=== PATIENT | male | born 1950 | race Hispanic/Latino ===

== ENCOUNTER 2020-04-20 15:54 | Emergency (ER) | payer MEDICAID, MEDICARE, OTHER ==
--- NOTE | 2020-04-20 16:27 | Emergency Department Report ---
ED Lower Extremity HPI - General Chief Complaint: Extremity Problem,Nontraumatic Stated Complaint: LEFT LEG PAIN Time Seen by Provider: 04/20/20 16:12 Source: RN notes reviewed Mode of arrival: Stretcher Limitations: No Limitations - History of Present Illness Initial Comments: This is a 69-year-old male nontoxic, well nourished in appearance, no acute signs of distress presents to the ED with c/o of left lower leg pain x several days. Patient denies any trauma or injuries. Patient stated that pain is located in his thigh area and radiating to lower leg. Patient denies any numbness, tingling, fever, chills, nausea, vomiting, chest pain, shortness of breath, headache, stiff neck. Denies any leg swelling. Patient denies any joint swelling or joint redness. Patient denies decreased range of motion. MD Complaint: other (left leg pain) -: days(s) Injury: Leg: Left Severity: mild Severity scale (0 -10): 8 Improves With: nothing Worsens With: nothing Associated Symptoms: ambulatory. denies: snap/pop sensation, swelling, numbness, tingling, unable to bear weight, able to partially bear weight - Related Data Previous Rx's Medication Instructions Recorded Last Taken Type Cyclobenzaprine [Flexeril] 10 mg PO QHS PRN #10 tablet 04/20/20 Unknown Rx Naproxen 500 mg PO Q12H PRN #20 tablet 04/20/20 Unknown Rx Nicotine [Habitrol] 21 mg TD DAILY #30 patch 04/20/20 Unknown Rx Allergies Allergy/AdvReac Type Severity Reaction Status Date / Time chlorpromazine Allergy Unknown Verified 04/20/20 16:21 diphenhydramine Allergy Unknown Verified 04/20/20 16:21 [From Benadryl] haloperidol [From Haldol] Allergy Unknown Verified 04/20/20 16:21 latex Allergy Unknown Verified 04/20/20 16:21 Penicillins Allergy Unknown Verified 04/20/20 16:21 thioridazine [From Mellaril] Allergy Unknown Verified 04/20/20 16:21 ED Review of Systems ROS: Stated complaint: LEFT LEG PAIN Other details as noted in HPI Constitutional: denies: chills, fever Eyes: denies: eye pain, eye discharge, vision change ENT: denies: ear pain, throat pain Respiratory: denies: cough, shortness of breath, wheezing Cardiovascular: denies: chest pain, palpitations Endocrine: no symptoms reported Gastrointestinal: denies: abdominal pain, nausea, diarrhea Genitourinary: denies: urgency, dysuria Musculoskeletal: denies: back pain, joint swelling, arthralgia Skin: denies: rash, lesions Neurological: denies: headache, weakness, paresthesias Psychiatric: denies: anxiety, depression Hematological/Lymphatic: denies: easy bleeding, easy bruising ED Past Medical Hx - Medications Home Medications: Home Medications Medication Instructions Recorded Confirmed Last Taken Type Cyclobenzaprine [Flexeril] 10 mg PO QHS PRN #10 tablet 04/20/20 Unknown Rx Naproxen 500 mg PO Q12H PRN #20 tablet 04/20/20 Unknown Rx Nicotine [Habitrol] 21 mg TD DAILY #30 patch 04/20/20 Unknown Rx ED Physical Exam - General Limitations: No Limitations General appearance: alert, in no apparent distress - Head Head exam: Present: atraumatic, normocephalic - Neck Neck exam: Present: normal inspection, full ROM. Absent: tenderness, meningismus, lymphadenopathy - Respiratory Respiratory exam: Present: normal lung sounds bilaterally. Absent: respiratory distress, wheezes, rales, rhonchi, stridor, chest wall tenderness, accessory muscle use, decreased breath sounds, prolonged expiratory - Cardiovascular Cardiovascular Exam: Present: regular rate, normal rhythm, normal heart sounds. Absent: irregular rhythm, systolic murmur, diastolic murmur, rubs, gallop - Extremities Exam Extremities exam: Present: normal inspection, full ROM, normal capillary refill. Absent: tenderness, joint swelling, calf tenderness - Expanded Lower Extremity Exam Left Hip exam: Present: normal inspection, full ROM. Absent: tenderness, swelling Upper Leg exam: Present: normal inspection, full ROM, tenderness (upper thigh). Absent: swelling, abrasion, laceration, ecchymosis, deformity, crepidus, dislocation, erythema Knee exam: Present: normal inspection, full ROM, full knee extension. Absent: tenderness, swelling, abrasion, laceration, ecchymosis, deformity, crepidus, dislocation, erythema, effusion, pain w/ pronation/supination, posterior draw sign, pain/laxity with valgus, pain/laxity with varus Lower Leg exam: Present: normal inspection, full ROM. Absent: tenderness, swelling, abrasion, laceration, ecchymosis, deformity, crepidus, dislocation, erythema, palpable cord, Margarita's sign Ankle exam: Present: normal inspection, full ROM. Absent: tenderness, swelling Foot/Toe exam: Present: normal inspection, full ROM. Absent: tenderness, swelling Neuro vascular tendon exam: Present: no vascular compromise Gait: Positive: observed and normal - Back Exam Back exam: Present: normal inspection, full ROM. Absent: tenderness, CVA tenderness (R), CVA tenderness (L), muscle spasm, paraspinal tenderness, vertebral tenderness, rash noted - Neurological Exam Neurological exam: Present: alert, oriented X3, normal gait - Psychiatric Psychiatric exam: Present: normal affect, normal mood - Skin Skin exam: Present: warm, dry, intact, normal color. Absent: rash ED Course Vital Signs 04/20/20 04/20/20 04/20/20 16:22 16:24 16:27 Temperature 97.8 F Pulse Rate 87 87 Respiratory 21 18 21 Rate Blood Pressure 149/90 O2 Sat by Pulse 100 100 100 Oximetry 04/20/20 04/20/20 04/20/20 16:30 17:00 17:30 Temperature Pulse Rate 84 82 81 Respiratory 13 20 15 Rate Blood Pressure 152/87 150/81 144/79 O2 Sat by Pulse 100 100 100 Oximetry 04/20/20 04/20/20 04/20/20 18:00 18:30 19:00 Temperature Pulse Rate 89 Respiratory 16 Rate Blood Pressure 159/86 150/79 170/80 O2 Sat by Pulse 100 98 98 Oximetry - Reevaluation(s) Reevaluation #1: 04/20/20 16:27 Patient is speaking in full sentences with no signs of distress noted. 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 Doppler ultrasound and spectral analysis was performed on the left lower extremity COMPARISON: None available. FINDINGS: The left common femoral, superficial femoral, popliteal and calf veins were identified. The veins were all compressible no obvious thrombus is seen. Normal Doppler flow seen in each vessel. IMPRESSION: No evidence of deep venous thrombosis of the left lower extremity Signer Name: Jam Kirkpatrick MD FACR Signed: 04/20/2020 6:37 PM Workstation Name: [id number] - Medical Decision Making This is a 69-year-old male that presents with left leg strain. Patient is stable and was examined by me. Doppler US is negative for DVT. Patient received Motrin in the ED which stated that symptoms is resolving and subsiding of the pain. Patient was instructed to follow-up with a primary care doctor in 3-5 days or if symptoms worsen and continue return to emergency room as soon as possible. At time of discharge, the patient does not seem toxic or ill in appearance. No acute signs of distress noted. Patient agrees to discharge treatment plan of care. No further questions noted by the patient. Critical care attestation.: If time is entered above; I have spent that time in minutes in the direct care of this critically ill patient, excluding procedure time. ED Disposition Clinical Impression: Muscle strain of left lower leg Qualifiers: Encounter type: initial encounter Qualified Code(s): S86.912A - Strain of unspecified muscle(s) and tendon(s) at lower leg level, left leg, initial encounter Disposition: - TO HOME OR SELFCARE Is pt being admited?: No Does the pt Need Aspirin: No Condition: Stable Instructions: Cyclobenzaprine (By mouth), Muscle Strain (ED) Additional Instructions: Follow-up with a primary care doctor in 3-5 days or if symptoms worsen and continue return to emergency room as soon as possible. Take naproxen and Flexeril as prescribed. Do not operate heavy machinery while taking Flexeril due to sedation Prescriptions: Cyclobenzaprine [Flexeril] 10 mg PO QHS PRN #10 tablet PRN Reason: Muscle Spasm Nicotine [Habitrol] 21 mg TD DAILY #30 patch Naproxen 500 mg PO Q12H PRN #20 tablet PRN Reason: Pain , Severe (7-10) Referrals: HUNTER WILLS MD [Primary Care Provider] - 3-5 Days PRIMARY [facility]ARE, [Referring] - 3-5 Days CASTRO MONTEZ MD [Staff Physician] - 3-5 Days [facility] [Provider Group] - 3-5 Days
[2020-04-20] MEDS ORDERED: NICOTINE 21 MG/24 HR PATCH TD ONE (16:38)
[2020-04-20] MEDS ORDERED: IBUPROFEN 800 MG TAB PO ONE (16:48)
--- NOTE | 2020-04-20 19:41 | Vascular Lab Report ---
VL venous duplex LE LT INDICATION / CLINICAL INFORMATION: left leg pain. Doppler ultrasound and spectral analysis was performed on the left lower extremity COMPARISON: None available. FINDINGS: The left common femoral, superficial femoral, popliteal and calf veins were identified. The veins wer e all compressible no obvious thrombus is seen. Normal Doppler flow seen in each vessel. IMPRESSION: No evidence of deep venous thrombosis of the left lower extremity Signer Name: Jam Kirkpatrick MD FACKimmy Signed: 04/20/2020 7:37 PM Workstation Name: [id number]
[2020-04-20 21:13] VITALS: BP 139/74
== END 2020-04-20 22:26 | disposition home or self-care (01) ==
LOC: ED 15:54
DX: S86.912A Strain of unspecified muscle(s) and tendon(s) at lower leg level, left leg, initial encounter (principal); Z79.899 Other long term (current) drug therapy; Z88.0 Allergy status to penicillin; Z91.040 Latex allergy status; Z88.8 Allergy status to other drugs, medicaments and biological substances; X58.XXXA Exposure to other specified factors, initial encounter; Y93.89 Activity, other specified; Y92.89 Other specified places as the place of occurrence of the external cause; Y99.8 Other external cause status